=== PATIENT | female | born 1965 | race Caucasian/White ===

== ENCOUNTER 2016-10-08 21:28 | Emergency (ER) | payer MEDICAID ==
[~2016-10-08] VITALS: Ht 167.6 cm; Wt 100.0 kg
[~2016-10-08 21:28] MED LIST: ATOR40TA70 PO; B50 GT; BUSP5TAB3 PO; DIVA-18 PO; FLUO-124 PO; HALO10TA13 PO; LEVE500V IV; LEVO100T9 PO; LITH600C PO; METF10002 PO; OLAN10TA3 PO; OMEP20CA10 PO; PHEN30TA42 PO; QUET50TA PO; TEMA30CA PO
[2016-10-08 22:49] LABS: BASOPHILS % 0.6 % (0.0-2.0); EOSINOPHILS % 2.8 % (0.0-5.0); HEMATOCRIT. 32.5 % (36.0-48.0); LYMPHOCYTES % 33.8 % (20.0-50.0); MEAN CORPUSCULAR HEMOGLOBIN 31.9 pg (28.0-32.0); MEAN CORPUSCULAR VOLUME 94.5 fL (81.0-99.0); MEAN PLATELET VOLUME 7.8 fl (7.4-10.4); MONOCYTES % 8.1 % (2.0-8.0); NEUTROPHILS % 54.7 % (40.0-76.0); PLATELET 232 x1000/uL (130-400); RED BLOOD CELL COUNT 3.44 mill/uL (4.2-5.4); RED CELL DISTRIBUTION WIDTH 15.7 % (11.6-14.6)
[2016-10-08 23:03] LABS: CARBON DIOXIDE 28 mEq/L (21-32); CHLORIDE 106 mEq/L (98-107); ETHANOL BLOOD < 10 mg/dL
[2016-10-08 23:07] LABS: PHENOBARBITAL < 2.1 ug/mL (15.0-40.0)
[2016-10-08 23:35] LABS: CLARITY URINE TURBID (CLEAR); COLOR URINE DARK YELLOW (YELLOW); GLUCOSE URINE NEGATIVE (NEGATIVE); KETONES URINE NEGATIVE (NEGATIVE); LEUKOCYTE ESTERASE URINE NEGATIVE (NEGATIVE); NITRITE URINE NEGATIVE (NEGATIVE); OCCULT BLOOD URINE NEGATIVE (NEGATIVE); PH URINE 5.5 (4.5-8.0); PROTEIN URINE TRACE (NEGATIVE); SPECIFIC GRAVITY URINE 1.035 (1.005-1.030)
[2016-10-09 00:24] LABS: *AMPHETAMINES SCREEN URINE NEGATIVE (NEGATIVE); *BARBITURATES SCREEN URINE PRESUMTIVE POSITIVE (NEGATIVE); *BENZODIAZEPINES SCREEN URINE NEGATIVE (NEGATIVE); *COCAINE SCREEN URINE NEGATIVE (NEGATIVE); CANNABINOID URINE SCREEN NEGATIVE (NEGATIVE); METHADONE URINE SCREEN NEGATIVE (NEGATIVE); OPIATES URINE SCREEN NEGATIVE (NEGATIVE); PHENCYCLIDINE URINE SCREEN NEGATIVE (NEGATIVE)
[2016-10-09] MEDS ORDERED: LEVETIRACETAM 500MG PREMIX 100 ML IV ONE (00:45)
[2016-10-09] MEDS ORDERED: PHENOBARBITAL 30 MG TABLET PO ONE (00:45)
[2016-10-09] MEDS ORDERED: VALPROATE SODIUM 500 MG in SODIUM CHLORIDE 0.9% 100 ML IV SCH (00:45)
[2016-10-09 04:15] VITALS: BP 123/64
== END 2016-10-09 04:40 | disposition home or self-care (01) ==
LOC: ER 21:39
DX: R56.9 Unspecified convulsions (principal); R11.10 Vomiting, unspecified; R19.7 Diarrhea, unspecified; Z88.0 Allergy status to penicillin; Z88.1 Allergy status to other antibiotic agents
CPT/HCPCS: 36415; 70450; 71010; 80053; 80165; 80184; 80305; 81001; 82962; 85025; 96365; 96367; 99285; G0482; J1953; J3490; Z7610; 96366; 96368; J7050

== ENCOUNTER 2016-10-09 07:37 | Emergency (ER) | payer MEDICAID ==
[~2016-10-09] VITALS: Ht 167.6 cm; Wt 69.0 kg
[2016-10-09] MEDS ORDERED: ONDANSETRON HCL 4MG/2ML VIAL IV ONE (09:30)
[2016-10-09] MEDS ORDERED: SODIUM CHLORIDE 0.9% 1,000 ML IV ONE (09:30)
[2016-10-09] MEDS ORDERED: MORPHINE SULFATE 4 MG/ML CPJ (NOT FOR IM USE) IV ONE (09:30)
[2016-10-09 09:48] LABS: BASOPHILS % 0.6 % (0.0-2.0); EOSINOPHILS % 3.3 % (0.0-5.0); HEMATOCRIT. 34.1 % (36.0-48.0); HEMOGLOBIN. 11.3 g/dL (12.0-16.0); LYMPHOCYTES % 35.8 % (20.0-50.0); MEAN CORPUSCULAR HEMOGLOBIN 31.2 pg (28.0-32.0); MEAN CORPUSCULAR VOLUME 94.2 fL (81.0-99.0); MEAN PLATELET VOLUME 7.7 fl (7.4-10.4); MONOCYTES % 8.3 % (2.0-8.0); PLATELET 249 x1000/uL (130-400); RED BLOOD CELL COUNT 3.61 mill/uL (4.2-5.4); RED CELL DISTRIBUTION WIDTH 15.5 % (11.6-14.6)
[2016-10-09 09:57] LABS: CLARITY URINE CLEAR (CLEAR); COLOR URINE YELLOW (YELLOW); GLUCOSE URINE NEGATIVE (NEGATIVE); KETONES URINE TRACE (NEGATIVE); LEUKOCYTE ESTERASE URINE NEGATIVE (NEGATIVE); NITRITE URINE NEGATIVE (NEGATIVE); OCCULT BLOOD URINE NEGATIVE (NEGATIVE); PH URINE 5.5 (4.5-8.0); PROTEIN URINE NEGATIVE (NEGATIVE); SPECIFIC GRAVITY URINE 1.022 (1.005-1.030); UROBILINOGEN URINE 0.2 E.U./dL (0.2-1.0)
[2016-10-09 10:01] LABS: CARBON DIOXIDE 31 mEq/L (21-32); CHLORIDE 105 mEq/L (98-107)
[2016-10-09] MEDS ORDERED: SODIUM CHLORIDE 0.9% 10ML VIAL ONE (13:23)
[2016-10-09] MEDS ORDERED: IOHEXOL-300 100 ML BOTTLE ONE (13:23)
[2016-10-09 14:10] LABS: PHENOBARBITAL 3.4 ug/mL (15.0-40.0)
[2016-10-09] MEDS ORDERED: PHENOBARBITAL 100MG TABLET PO NR (15:30)
[2016-10-09 16:00] VITALS: BP 135/72
== END 2016-10-09 16:09 | disposition home or self-care (01) ==
LOC: ER 09:27
DX: K52.9 Noninfective gastroenteritis and colitis, unspecified (principal); E86.0 Dehydration; Z88.0 Allergy status to penicillin; Z88.1 Allergy status to other antibiotic agents
CPT/HCPCS: 36415; 74177; 80053; 80184; 80185; 81003; 82542; 83690; 85025; 87086; 96361; 96374; 96375; 99285; A4216; J2270; J2405; J7030; Q9967; Z7610

== ENCOUNTER 2016-10-13 09:03 | Inpatient (IN) | payer MEDICAID ==
[~2016-10-13] VITALS: Ht 175.3 cm; Wt 83.9 kg
[2016-10-13] MEDS ORDERED: SODIUM CHLORIDE 0.9% 1,000 ML IV ONE (09:09)
[2016-10-13] MEDS ORDERED: LEVETIRACETAM 500MG PREMIX 100 ML IV ONE (09:15)
[2016-10-13 09:46] LABS: BASOPHILS % 0.7 % (0.0-2.0); EOSINOPHILS % 2.3 % (0.0-5.0); HEMATOCRIT. 30.4 % (36.0-48.0); HEMOGLOBIN. 10.3 g/dL (12.0-16.0); LYMPHOCYTES % 19.1 % (20.0-50.0); MEAN CORPUSCULAR HEMOGLOBIN 31.7 pg (28.0-32.0); MEAN CORPUSCULAR VOLUME 93.8 fL (81.0-99.0); MEAN PLATELET VOLUME 8.3 fl (7.4-10.4); MONOCYTES % 7.7 % (2.0-8.0); NEUTROPHILS % 70.2 % (40.0-76.0); PLATELET 215 x1000/uL (130-400); RED BLOOD CELL COUNT 3.25 mill/uL (4.2-5.4); RED CELL DISTRIBUTION WIDTH 15.8 % (11.6-14.6)
[2016-10-13 09:52] LABS: CHLORIDE 104 mEq/L (98-107)
[2016-10-13 09:53] LABS: INR 1.1; PROTHROMBIN TIME 11.2 sec (9.4-11.6)
[2016-10-13 09:54] LABS: HCG SCREEN NEGATIVE
[2016-10-13 10:02] LABS: CARBON DIOXIDE 30 mEq/L (21-32); PHENOBARBITAL 6.7 ug/mL (15.0-40.0)
[2016-10-13] MEDS ORDERED: DIVALPROEX SODIUM 250MG ER TABLET PO ONE (10:45)
[2016-10-13] MEDS ORDERED: PHENOBARBITAL 100MG TABLET PO ONE (10:45)
[2016-10-13 10:56] LABS: *AMPHETAMINES SCREEN URINE NEGATIVE (NEGATIVE); *BARBITURATES SCREEN URINE PRESUMTIVE POSITIVE (NEGATIVE); *BENZODIAZEPINES SCREEN URINE NEGATIVE (NEGATIVE); *COCAINE SCREEN URINE NEGATIVE (NEGATIVE); CANNABINOID URINE SCREEN NEGATIVE (NEGATIVE); METHADONE URINE SCREEN NEGATIVE (NEGATIVE); OPIATES URINE SCREEN PRESUMTIVE POSITIVE (NEGATIVE); PHENCYCLIDINE URINE SCREEN NEGATIVE (NEGATIVE)
[2016-10-13] MEDS ORDERED: PHENOBARBITAL 30 MG TABLET PO ONE (11:30)
[2016-10-13 13:07] VITALS: BP 105/73
[2016-10-13] MEDS ORDERED: PNEUMOCOCCAL 23-VAL P-SAC VAC 0.5 ML IM ONE (14:00)
[2016-10-13 15:52] VITALS: BP 122/64
[2016-10-13] MEDS: QUETIAPINE FUMARATE 50MG TABLET PO SCH (17:21)
[2016-10-13] MEDS ORDERED: DEXTROSE 50% WATER 50ML SYRINGE IV PRN (18:00)
[2016-10-13 20:00] VITALS: BP 135/59
[2016-10-13] MEDS: BUSPIRONE HCL 5MG TABLET PO SCH (20:00)
[2016-10-13] MEDS: HYDROCODONE/ACETAMINOPHEN 5/325MG TABLET PO PRN (20:02)
[2016-10-13] MEDS: LEVETIRACETAM 250 MG in SODIUM CHLORIDE 0.9% 100 ML IV SCH (20:03)
[2016-10-13] MEDS: BLOOD SUGAR DIAGNOSTIC STRIP TEST SCH (20:47)
[2016-10-13] MEDS: INSULIN LISPRO 100 UNITS/ML SUBCUT SCH (20:48)
[2016-10-13] MEDS: OLANZAPINE 10MG TABLET PO SCH (22:37)
[2016-10-13] MEDS: MORPHINE SULFATE 2 MG/ML CPJ (NOT FOR IM USE) IV PRN (22:39)
[2016-10-14] VITALS: BP 118/59
[2016-10-14 04:00] VITALS: BP 115/62
[2016-10-14] MEDS: LEVETIRACETAM 250 MG in SODIUM CHLORIDE 0.9% 100 ML IV SCH (05:42)
[2016-10-14] MEDS: LEVOTHYROXINE SODIUM 100MCG TABLET PO SCH (06:43)
[2016-10-14] MEDS: OMEPRAZOLE 20MG CAPSULE EXTENDED RELEASE PO SCH ×2 (06:43→09:19)
[2016-10-14] MEDS: BLOOD SUGAR DIAGNOSTIC STRIP TEST SCH ×4 (06:45→20:48)
[2016-10-14] MEDS: INSULIN LISPRO 100 UNITS/ML SUBCUT SCH ×4 (06:45→20:48)
[2016-10-14 07:53] LABS: BASOPHILS % 0.8 % (0.0-2.0); EOSINOPHILS % 3.4 % (0.0-5.0); HEMATOCRIT. 32.2 % (36.0-48.0); HEMOGLOBIN. 10.8 g/dL (12.0-16.0); LYMPHOCYTES % 37.8 % (20.0-50.0); MEAN CORPUSCULAR HEMOGLOBIN 31.5 pg (28.0-32.0); MEAN CORPUSCULAR VOLUME 94.4 fL (81.0-99.0); MEAN PLATELET VOLUME 8.1 fl (7.4-10.4); MONOCYTES % 10.8 % (2.0-8.0); NEUTROPHILS % 47.2 % (40.0-76.0); PLATELET 204 x1000/uL (130-400); RED BLOOD CELL COUNT 3.41 mill/uL (4.2-5.4); RED CELL DISTRIBUTION WIDTH 16.1 % (11.6-14.6)
[2016-10-14 08:00] VITALS: BP 140/87
[2016-10-14 08:13] LABS: CHLORIDE 105 mEq/L (98-107)
[2016-10-14 08:20] LABS: CARBON DIOXIDE 29 mEq/L (21-32); PHENOBARBITAL 7.3 ug/mL (15.0-40.0)
[2016-10-14] MEDS ORDERED: DIVALPROEX SODIUM 500MG ER TABLET PO SCH (09:00)
[2016-10-14] MEDS: BUSPIRONE HCL 5MG TABLET PO SCH ×3 (09:18→16:08)
[2016-10-14] MEDS: OLANZAPINE 10MG TABLET PO SCH (09:18)
[2016-10-14] MEDS: FLUOXETINE HCL 20MG CAPSULE PO SCH (09:18)
[2016-10-14] MEDS: QUETIAPINE FUMARATE 50MG TABLET PO SCH ×3 (09:19→23:59)
[2016-10-14] MEDS: HYDROCODONE/ACETAMINOPHEN 5/325MG TABLET PO PRN (09:37)
[2016-10-14] MEDS: ATORVASTATIN CALCIUM 40MG TABLET PO SCH (09:37)
[2016-10-14] MEDS: MORPHINE SULFATE 2 MG/ML CPJ (NOT FOR IM USE) IV PRN (11:20)
[2016-10-14 12:00] VITALS: BP 123/75
[2016-10-14] MEDS ORDERED: HALOPERIDOL 5MG TABLET PO SCH (14:00)
[2016-10-14] MEDS ORDERED: HALOPERIDOL 0.5MG TABLET PO SCH (14:00)
[2016-10-14] MEDS: HALOPERIDOL 5MG TABLET PO SCH (15:01)
[2016-10-14] MEDS ORDERED: LORAZEPAM 2MG/ML CPJ IV PRN ×2 (16:30→20:00)
[2016-10-14] MEDS: ZIPRASIDONE HCL 60MG CAPSULE PO SCH ×3 (17:18→23:59)
[2016-10-14] MEDS: DIVALPROEX SODIUM 500MG ER TABLET PO SCH (17:18)
[2016-10-14] MEDS: LAMOTRIGINE 25MG TABLET PO SCH (17:18)
[2016-10-14] MEDS: PHENOBARBITAL 30 MG TABLET PO SCH (17:18)
[2016-10-14 20:00] VITALS: BP 112/71
[2016-10-14] MEDS ORDERED: TEMAZEPAM 15MG CAPSULE PO PRN (20:00)
[2016-10-14] MEDS ORDERED: OLANZAPINE 10MG TABLET PO SCH (21:00)
[2016-10-15] VITALS: BP 122/70
[2016-10-15] MEDS: HYDROCODONE/ACETAMINOPHEN 5/325MG TABLET PO PRN ×2 (00:01→10:21)
[2016-10-15] MEDS: MORPHINE SULFATE 2 MG/ML CPJ (NOT FOR IM USE) IV PRN (03:48)
[2016-10-15 04:00] VITALS: BP 103/52
[2016-10-15] MEDS: LEVOTHYROXINE SODIUM 100MCG TABLET PO SCH (06:18)
[2016-10-15] MEDS: INSULIN LISPRO 100 UNITS/ML SUBCUT SCH ×3 (06:53→17:40)
[2016-10-15] MEDS: BLOOD SUGAR DIAGNOSTIC STRIP TEST SCH ×3 (06:53→17:10)
[2016-10-15 07:20] LABS: BASOPHILS % 0.6 % (0.0-2.0); EOSINOPHILS % 2.2 % (0.0-5.0); HEMATOCRIT. 34.6 % (36.0-48.0); HEMOGLOBIN. 11.7 g/dL (12.0-16.0); LYMPHOCYTES % 37.7 % (20.0-50.0); MEAN CORPUSCULAR HEMOGLOBIN 31.4 pg (28.0-32.0); MEAN CORPUSCULAR VOLUME 93.1 fL (81.0-99.0); MEAN PLATELET VOLUME 8.4 fl (7.4-10.4); MONOCYTES % 7.8 % (2.0-8.0); NEUTROPHILS % 51.7 % (40.0-76.0); PLATELET 214 x1000/uL (130-400); RED BLOOD CELL COUNT 3.72 mill/uL (4.2-5.4); RED CELL DISTRIBUTION WIDTH 15.8 % (11.6-14.6)
[2016-10-15 08:00] VITALS: BP 145/88
[2016-10-15 08:18] LABS: CARBON DIOXIDE 32 mEq/L (21-32); CHLORIDE 102 mEq/L (98-107)
[2016-10-15] MEDS: ATORVASTATIN CALCIUM 40MG TABLET PO SCH (09:00)
[2016-10-15] MEDS: PHENOBARBITAL 30 MG TABLET PO SCH ×2 (10:20→17:00)
[2016-10-15] MEDS: BUSPIRONE HCL 5MG TABLET PO SCH ×3 (10:20→17:00)
[2016-10-15] MEDS: LAMOTRIGINE 25MG TABLET PO SCH (10:21)
[2016-10-15] MEDS: FLUOXETINE HCL 20MG CAPSULE PO SCH (10:21)
[2016-10-15] MEDS: ZIPRASIDONE HCL 60MG CAPSULE PO SCH ×2 (10:21→17:00)
[2016-10-15] MEDS: DIVALPROEX SODIUM 500MG ER TABLET PO SCH ×2 (10:21→17:00)
[2016-10-15] MEDS: HALOPERIDOL 5MG TABLET PO SCH (10:22)
[2016-10-15 12:00] VITALS: BP 134/85
[2016-10-15 16:00] VITALS: BP 136/70
[2016-10-15 16:38] VITALS: BP 134/85
[2016-10-19] MEDS ORDERED: FAMOTIDINE 20MG TABLET PO SCH (07:10)
== END 2016-10-15 18:10 | disposition home or self-care (01) | DRG 53 ==
LOC: ER 09:37 → EDBEDREQ 10:57 → CANRESERV 11:05 → ENRESERV 11:05 → 8WST 13:07
PROVIDERS: ADMIT Internal Medicine; ATTEND Internal Medicine
DX: G40.919 Epilepsy, unspecified, intractable, without status epilepticus (principal); E83.51 Hypocalcemia; I10 Essential (primary) hypertension; F20.9 Schizophrenia, unspecified; E78.5 Hyperlipidemia, unspecified; E11.9 Type 2 diabetes mellitus without complications; E03.9 Hypothyroidism, unspecified; F17.210 Nicotine dependence, cigarettes, uncomplicated; K21.9 Gastro-esophageal reflux disease without esophagitis; M25.511 Pain in right shoulder; F32.9 Major depressive disorder, single episode, unspecified; F41.9 Anxiety disorder, unspecified; Z60.2 Problems related to living alone; Z79.899 Other long term (current) drug therapy; Z79.84 Long term (current) use of oral hypoglycemic drugs; Z59.0 Homelessness; Z88.0 Allergy status to penicillin; Z88.1 Allergy status to other antibiotic agents
CPT/HCPCS: 36415; 70450; 70551; 73030; 80048; 80165; 80184; 80305; 81025; 82542; 82962; 84703; 85025; 85610; 85730; 90732; 95816; 97116; 97162; 99291; C1893; J1630; J1953; J2060; J2270; J7030; J7040; J7050